=== PATIENT | female | born 1995 | race Caucasian/White ===

== ENCOUNTER 2024-12-15 03:13 | Emergency (ER) | payer BC, OTHER, SELFPAY ==
--- NOTE | 2024-12-15 03:14 | ECG_ITS ---
Test Reason : CP Blood Pressure : */* mmHG Vent. Rate : 82 BPM Atrial Rate : 82 BPM P-R Int : 156 ms QRS Dur : 92 ms QT Int : 364 ms P-R-T Axes : 64 73 56 degrees QTcB Int : 425 ms Normal sinus rhythm Normal ECG No previous ECGs available Referred By: Generic ED Physician Electronically Signed By: CARROLL URIAS MD
[2024-12-15 03:26] VITALS: PULSE 85; RESP 18; TEMP 36.4; O2SAT 97; BMI 22.3
--- NOTE | 2024-12-15 03:28 | PC.NURSE ---
patient refusing bp during triage d/t anxiety over potential of being hypertensive. ekg done
[2024-12-15 04:10] VITALS: BP 150/92
--- NOTE | 2024-12-15 04:21 | ED_ITS ---
HPI - Anxiety General Chief Complaint: Anxiety Stated Complaint: CP Time Seen by Provider: 12/15/24 03:56 Source: patient Mode of arrival: ambulatory Limitations: no limitations History of Present Illness ED Provider: HPI narrative: Patient's history of anxiety woke up from sleep increase in anxious checked her blood pressure elevated took her propranolol worried about her health situation on arrival patient's blood pressure was 150/92 pulse rate 85 patient's took a propranolol and have beer prior to arrival Related Data Previous Rx's ?Medication ?Instructions ?Recorded lorazepam 1 mg tablet (Ativan) 1 mg PO BEDTIME PRN anxiety #14 12/15/24 tabs Allergies Allergy/AdvReac Type Severity Reaction Status Date / Time azithromycin Allergy Unknown Verified 12/15/24 03:26 Review of Systems Review of Systems: Yes all other systems are reviewed and are negative [facility] Social History Social History Alcohol intake: current Alcohol intake frequency: a few times a week Alcohol type: beer Smoked in Last 30 Days: No Use of substances other than those prescribed or required for medical reasons: No Advance Directives: No Advance Directives Information Provided: No Physical Exam Vital Signs: Vital Signs: Last Vital Signs Temp 98.2 F 12/15/24 05:29 Pulse 67 12/15/24 05:29 Resp 20 12/15/24 05:29 BP 168/93 H 12/15/24 05:29 Pulse Ox 100 12/15/24 05:29 O2 Del Method Room Air 12/15/24 05:29 BMI result Body Mass Index 22.3 Appearance: Alert. Oriented X3. No acute distress. Anxious Eyes: no pallor or icterus ENT: Pharynx normal Oral Mucosa moist tympanic membrane intact no erythema, Neck: Normal inspection. Neck supple. CVS: Normal heart rate and rhythm. Pulses normal. Respiratory: No respiratory distress. Equal air entry bilateral, no wheezing/rales/rhonchi Abd: soft, not tender Skin: Skin warm and dry. Normal skin color. Normal skin turgor. Extremities: No lower extremity edema, no calf tenderness Neuro: Oriented X 3. Medications Administered Discontinued Medications Generic Name Dose Route Start Last Admin Trade Name Freq PRN Reason Stop Dose Admin Lorazepam 1 mg 12/15/24 04:18 12/15/24 04:56 Lorazepam 1 Mg Tablet PO 12/15/24 04:19 1 mg ONCE ONE Administration Medical Decision Making Medical Decision Making [facility] Narrative: Patient has significant anxiety does not have any medication for anxiety will prescribe lorazepam which she has taken before patient's patient home advised to follow with therapist Independent Interpretation I performed an independent interpretation of an: EKG Interpretation: Normal sinus rhythm normal heart rate of 82 beats per minute normal intervals normal axis no acute STT wave changes no acute ischemia Discharge Plan Discharge Clinical Impression: Acute anxiety Patient Disposition: Home, Self-Care Instructions: Anxiety (ED) Additional Instructions: Rest at home Continue medications Take lorazepam for severe anxiety as prescribed and follow up with your psychiatrist/therapist Prescriptions: New lorazepam [Ativan] 1 mg tablet 1 mg PO BEDTIME PRN (Reason: anxiety) Qty: 14 0RF Interventions: ED Discharge Assessment Last Done: 12/15/24 05:29 Discharge Date/Time: 12/15/24 05:33 Print Language: Tunisian
[2024-12-15] MEDS: LORazepam 1 MG TABLET PO (04:56)
[2024-12-15 05:29] VITALS: BP 168/93; PULSE 67; RESP 20; TEMP 36.8; O2SAT 100
== END 2024-12-15 05:33 | disposition home or self-care (01) ==
PROVIDERS: Emergency Provider Internal Medicine
DX: R07.89 Other chest pain (principal); F41.9 Anxiety disorder, unspecified
CPT/HCPCS: 93005; 99283; 99284

== ENCOUNTER → 2024-12-15 03:14 | Outpatient (BNV) | payer BC, OTHER, SELFPAY | PROVIDERS: Emergency Provider Internal Medicine; Visit Provider Internal Medicine Cardiovascular Disease | DX: R07.9 Chest pain, unspecified (principal) | CPT/HCPCS: 93010 ==